=== PATIENT | female | born 1975 | race Caucasian/White ===

== ENCOUNTER 2017-07-24 13:56 | Emergency (ER) | payer OTHER ==
[2017-07-24 14:44] VITALS: BP 120/49
--- NOTE | 2017-07-24 14:50 | EDM.PDOC ---
ED HPI GENERAL MEDICAL PROBLEM - General Chief Complaint: Gastrointestinal Problem Stated Complaint: CHEST PAIN Time Seen by Provider: 07/24/17 14:25 Source of Information: Reports: Patient, RN, RN Notes Reviewed History Limitations: Reports: No Limitations - History of Present Illness INITIAL COMMENTS - FREE TEXT/NARRATIVE: Pt presents to the ER with c/o sternal/epigastric pain that she rates a 6/10. She states the pain is sharp "like a pencil poking through the stomach to the back. She states the pain has been ongoing for weeks to months, but today seems especially worse. Recently she has been feeling palpitations, and currently she is wearing a Holter Monitor ordered by Chano Yeung NP. She states 2 weeks ago she was seen in the ER in with the same thing, and they prescribed Bentyl for IBS. She denies sob, fever, or chills. She states she is always nauseated but never vomits. She has an appointment set up with Monroe Angeles NP with GI in on Aug.18. Onset: Today, Gradual Location: Reports: Chest Quality: Reports: Sharp Severity: Moderate Improves with: Reports: None Worsens with: Reports: None Associated Symptoms: Reports: No Other Symptoms Epigastric Pain Score (Numeric/FACES): 6 - Related Data Allergies Allergy/AdvReac Type Severity Reaction Status Date / Time acetaminophen [From Percocet] Allergy Hives Verified 01/15/16 13:02 bupropion Allergy Other Verified 01/15/16 13:02 moxifloxacin Allergy Cannot Verified 01/15/16 13:02 Remember oxycodone HCl [From Percocet] Allergy Hives Verified 01/15/16 13:02 Sulfa (Sulfonamide Allergy Rash Verified 01/15/16 13:02 Antibiotics) venlafaxine Allergy Other Verified 01/15/16 13:02 Home Meds: Home Meds ALPRAZolam [Alprazolam] 0.25 mg PO BID PRN 01/10/16 [History] Cetirizine [ZyrTEC] 10 mg PO DAILY PRN 01/10/16 [History] DULoxetine [Cymbalta] 30 mg PO DAILY 01/10/16 [History] Dicyclomine [Bentyl] 10 mg PO DAILY 01/10/16 [History] Fluconazole [Fluconazole] 100 mg PO ASDIRECTED 01/10/16 [History] Fluticasone Propionate [Flonase] 1 squirt NASBOTH DAILY PRN 01/10/16 [History] Hydroxychloroquine Sulfate [Plaquenil] 400 mg PO DAILY 01/10/16 [History] Minocycline [Minocin] 100 mg PO DAILY 01/10/16 [History] Naproxen [Naprosyn] 500 mg PO BID PRN 01/10/16 [History] Ondansetron [Zofran ODT] 4 mg PO BID PRN 01/10/16 [History] Propranolol [Inderal LA] 60 mg PO BEDTIME 01/10/16 [History] predniSONE 5 mg PO DAILY PRN 01/10/16 [History] Omeprazole [Prilosec] 20 mg PO ACDINNER 01/15/16 [History] Mirtazapine [Mirtazapine] 1 tab PO BEDTIME 07/24/17 [History] Past Medical History HEENT History: Reports: None Cardiovascular History: Reports: None Respiratory History: Reports: Asthma Gastrointestinal History: Reports: Chronic Constipation, GERD Genitourinary History: Reports: None [employer] History: Reports: Musculoskeletal History: Reports: Arthritis, Fibromyalgia, Other (See Below) Other Musculoskeletal History: INFLAMMATORY ARTHRITIS; HIP PAIN Neurological History: Reports: Headaches, Chronic, Other (See Below) Other Neuro History: INSOMNIA Psychiatric History: Reports: Anxiety Endocrine/Metabolic History: Reports: None Hematologic History: Reports: None Immunologic History: Reports: None Oncologic (Cancer) History: Reports: None Dermatologic History: Reports: None - Infectious Disease History Infectious Disease History: Reports: None - Past Surgical History Female Surgical History: Reports: Tubal Ligation, Other (See Below) Social & Family History - Tobacco Use Smoking Status *Q: Current Every Day Smoker Years of Tobacco use: 20 Packs/Tins Daily: 1 - Recreational Drug Use Recreational Drug Use: No ED ROS GENERAL - Review of Systems Review Of Systems: ROS reveals no pertinent complaints other than HPI. ED EXAM, GENERAL - Physical Exam Exam: See Below Exam Limited By: No Limitations General Appearance: Alert, WD/WN, No Apparent Distress Eye Exam: Bilateral Eye: Normal Inspection Ears: Normal External Exam, Hearing Grossly Normal Nose: Normal Inspection Throat/Mouth: Normal Inspection, Normal Voice, No Airway Compromise Head: Atraumatic, Normocephalic Neck: Normal Inspection, Supple, Non-Tender, Full Range of Motion Respiratory/Chest: No Respiratory Distress, Lungs Clear, Normal Breath Sounds, No Accessory Muscle Use. No: Chest Non-Tender Cardiovascular: Normal Peripheral Pulses, Regular Rate, Rhythm, No Edema, No Gallop, No JVD, No Murmur, No Rub Peripheral Pulses: 2+: Radial (L), Radial (R) GI/Abdominal: Normal Bowel Sounds, Soft, Non-Tender, No Organomegaly, No Distention, No Abnormal Bruit, No Mass (Female) Exam: Deferred Rectal (Female) Exam: Deferred Back Exam: Normal Inspection, Full Range of Motion Extremities: Normal Inspection, Normal Range of Motion, Non-Tender, No Pedal Edema, Normal Capillary Refill Neurological: Alert, Oriented, Normal Cognition, Normal Gait, No Motor/Sensory Deficits Psychiatric: Normal Affect, Normal Mood Skin Exam: Warm, Dry, Intact, Normal Color, No Rash Lymphatic: No Adenopathy EKG INTERPRETATION EKG Date: 07/24/17 Time: 14:38 Rhythm: NSR Rate (Beats/Min): 79 [place]: Normal P-Wave: Present QRS: Normal ST-T: Normal QT: Normal Comparison: NA - No Prior EKG Course - Vital Signs Last Recorded V/S: Last Vital Signs Temp 98.5 F 07/24/17 13:58 Pulse 81 07/24/17 13:58 Resp 16 07/24/17 13:58 BP 120/49 L 07/24/17 13:58 Pulse Ox 100 07/24/17 13:58 - Orders/Labs/Meds Orders: Active Orders 24 hr Category Date Time Status EKG Documentation Completion [RC] STAT Care 07/24/17 14:40 Active AMYLASE [CHEM] Stat Lab 07/24/17 14:52 Received LIPASE [CHEM] Stat Lab 07/24/17 14:52 Received Labs: Laboratory Tests 07/24/17 07/24/17 07/24/17 Range/Units 14:52 14:52 14:57 WBC 12.3 H (5.0-10.0) 10^3/uL RBC 4.23 (4.2-5.4) 10^6/uL Hgb 13.4 (12.0-16.0) g/dL Hct 39.3 (37.0-47.0) % MCV 92.9 (80-100) fL MCH 31.7 (27.0-34.0) pg MCHC 34.1 (33.0-35.0) g/dL Plt Count 296 (150-450) 10^3/uL Neut % (Auto) 70.1 (42.2-75.2) % Lymph % (Auto) 15.2 L (20.5-50.1) % [place] % (Auto) 12.1 H (2-8) % Eos % (Auto) 2.3 (1.0-3.0) % Baso % (Auto) 0.3 (0.0-1.0) % Sodium 138 (135-145) mmol/L Potassium 3.3 L (3.6-5.0) mmol/L Chloride 102 (101-111) mmol/L Carbon Dioxide 26.0 (21.0-31.0) mmol/L Anion Gap 13.3 BUN 13 (7-18) mg/dL Creatinine 0.7 (0.6-1.3) mg/dL Est Cr Clr Drug Dosing 88.56 mL/min Estimated GFR (MDRD) > 60 BUN/Creatinine Ratio 18.57 Glucose 78 (74-105) mg/dL Calcium 8.9 (8.4-10.2) mg/dl Total Bilirubin 0.6 (0.2-1.0) mg/dL AST 22 (10-42) IU/L ALT 20 (10-60) IU/L Alkaline Phosphatase 55 (42-121) IU/L Troponin I < 0.02 (0.00-0.02) ng/ml Total Protein 6.9 (6.7-8.2) g/dl Albumin 3.9 (3.2-5.5) g/dl Globulin 3.0 Albumin/Globulin Ratio 1.30 Urine Color (YELLOW) Urine Appearance (CLEAR) Urine pH (5.0-9.0) Ur Specific [place] (1.005-1.030) Urine Protein (NEGATIVE) Urine Glucose (UA) (NEGATIVE) Urine Ketones (NEGATIVE) Urine Occult Blood (NEGATIVE) Urine Nitrite (NEGATIVE) Urine Bilirubin (NEGATIVE) Urine Urobilinogen (0.2-1.0) mg/dL Ur Leukocyte Esterase (NEGATIVE) Urine RBC /HPF Urine WBC (0-5/HPF) /HPF Ur Epithelial Cells /HPF Urine Bacteria (0-FEW/HPF) /HPF Urine Mucus /LPF Urine HCG, Qual Negative 07/24/17 Range/Units 14:57 WBC (5.0-10.0) 10^3/uL RBC (4.2-5.4) 10^6/uL Hgb (12.0-16.0) g/dL Hct (37.0-47.0) % MCV (80-100) fL MCH (27.0-34.0) pg MCHC (33.0-35.0) g/dL Plt Count (150-450) 10^3/uL Neut % (Auto) (42.2-75.2) % Lymph % (Auto) (20.5-50.1) % [place] % (Auto) (2-8) % Eos % (Auto) (1.0-3.0) % Baso % (Auto) (0.0-1.0) % Sodium (135-145) mmol/L Potassium (3.6-5.0) mmol/L Chloride (101-111) mmol/L Carbon Dioxide (21.0-31.0) mmol/L Anion Gap BUN (7-18) mg/dL Creatinine (0.6-1.3) mg/dL Est Cr Clr Drug Dosing mL/min Estimated GFR (MDRD) BUN/Creatinine Ratio Glucose (74-105) mg/dL Calcium (8.4-10.2) mg/dl Total Bilirubin (0.2-1.0) mg/dL AST (10-42) IU/L ALT (10-60) IU/L Alkaline Phosphatase (42-121) IU/L Troponin I (0.00-0.02) ng/ml Total Protein (6.7-8.2) g/dl Albumin (3.2-5.5) g/dl Globulin Albumin/Globulin Ratio Urine Color Yellow (YELLOW) Urine Appearance Slightly cloudy (CLEAR) Urine pH 6.5 (5.0-9.0) Ur Specific [place] >= 1.030 (1.005-1.030) Urine Protein Trace H (NEGATIVE) Urine Glucose (UA) Negative (NEGATIVE) Urine Ketones Negative (NEGATIVE) Urine Occult Blood Negative (NEGATIVE) Urine Nitrite Negative (NEGATIVE) Urine Bilirubin Negative (NEGATIVE) Urine Urobilinogen 0.2 (0.2-1.0) mg/dL Ur Leukocyte Esterase Negative (NEGATIVE) Urine RBC 0-5 /HPF Urine WBC 0-5 (0-5/HPF) /HPF Ur Epithelial Cells Rare /HPF Urine Bacteria Rare (0-FEW/HPF) /HPF Urine Mucus Few H /LPF Urine HCG, Qual Meds: Medications Discontinued Medications Generic Name Dose Route Start Last Admin Trade Name Romi PRN Reason Stop Dose Admin Al Hydroxide/Mg Hydroxide 30 ml 07/24/17 15:33 07/24/17 15:39 Gi Cocktail PO 07/24/17 15:34 30 ml ONETIME ONE Administration - Radiology Interpretation Free Text/Narrative:: chest xray: See rad report Departure - Departure Time of Disposition: 15:58 Disposition: Home, Self-Care 01 Condition: Fair Clinical Impression: Epigastric abdominal pain Acid reflux Qualifiers: Esophagitis presence: esophagitis presence not specified Qualified Code(s): K21.9 - Gastro-esophageal reflux disease without esophagitis Instructions: Heartburn, [id number], Gastroesophageal Reflux Disease, Adult Forms: ED Department Discharge Additional Instructions: RX: Magic Mouthwash Follow up with Chano Yeung NP Follow up with your appointment with Monroe Angeles NP - My Orders Last 24 Hours: My Active Orders 07/24/17 14:40 EKG Documentation Completion [RC] STAT 07/24/17 14:52 AMYLASE [CHEM] Stat LIPASE [CHEM] Stat - Assessment/Plan Last 24 Hours: My Active Orders 07/24/17 14:40 EKG Documentation Completion [RC] STAT 07/24/17 14:52 AMYLASE [CHEM] Stat LIPASE [CHEM] Stat
--- NOTE | 2017-07-24 15:07 | CR ---
Clinical history: 42-year-old female "sharp, stabbing" substernal lower anterior chest pain who has a Holter monitor (cholecystectomy several years ago). Interpretation: PA lateral chest film demonstrate some mild shaggy accentuation perihilar lung markin gs with subtle peribronchial "cuffing" but no focal lobar pneumonia and no signs of atelectasis/colla pse. Normal cardiac silhouette without cephalization of flow, signs of alveolar edema or dependent pleural effusion. No pneumothorax, pneumomediastinum or subdiaphragmatic air. Midline tracheal airway unremarkable. Early marginal arthritic spurring dorsal spine.
[2017-07-24 15:16] LABS: CHLORIDE,CL 102 mmol/L (101-111); SODIUM,NA 138 mmol/L (135-145)
[2017-07-24] MEDS ORDERED: GI Cocktail Oral Solution 30 ML PO ONE (15:33)
--- NOTE | 2017-07-28 10:36 | EKG ---
07/24/2017 - NATAN JAIME I reviewed the EKG and agree with the machine's reading. [facility] /[id number]
== END 2017-07-24 16:34 | disposition home or self-care (01) ==
LOC: DL.ED 13:56
DX: K21.9 Gastro-esophageal reflux disease without esophagitis (principal); F17.210 Nicotine dependence, cigarettes, uncomplicated; J45.909 Unspecified asthma, uncomplicated; F41.9 Anxiety disorder, unspecified; Z79.899 Other long term (current) drug therapy; Z88.2 Allergy status to sulfonamides; Z88.6 Allergy status to analgesic agent; Z88.1 Allergy status to other antibiotic agents; Z88.8 Allergy status to other drugs, medicaments and biological substances
CPT/HCPCS: 36415; 71020; 80053; 81001; 81025; 82150; 83690; 84484; 85025; 93005; 99284; A9270

== ENCOUNTER 2019-08-20 22:43 | Emergency (ER) | payer OTHER ==
[2019-08-20 23:44] VITALS: BP 126/59; PULSE 97
[2019-08-21] MEDS ORDERED: Ciprofloxacin 500 MG Tab PO ONE
--- NOTE | 2019-08-21 00:06 | EDM.PDOC ---
ED HPI GENERAL MEDICAL PROBLEM - General Chief Complaint: Genitourinary Problem Stated Complaint: URINARY PAIN Time Seen by Provider: 08/20/19 23:15 Source of Information: Reports: Patient History Limitations: Reports: No Limitations - History of Present Illness INITIAL COMMENTS - FREE TEXT/NARRATIVE: urinary frequency and burning since 5pm. No hx UTI. 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 Generalized Pain Score (Numeric/FACES): 7 - Related Data Allergies Allergy/AdvReac Type Severity Reaction Status Date / Time acetaminophen [From Percocet] Allergy Hives Verified 08/20/19 23:45 bupropion Allergy Other Verified 08/20/19 23:45 moxifloxacin Allergy Cannot Verified 08/20/19 23:45 Remember oxycodone HCl [From Percocet] Allergy Hives Verified 08/20/19 23:45 Sulfa (Sulfonamide Allergy Rash Verified 08/20/19 23:45 Antibiotics) venlafaxine Allergy Other Verified 08/20/19 23:45 Home Meds: Home Meds ALPRAZolam [Alprazolam] 0.25 mg PO BID PRN 01/10/16 [History] Cetirizine [ZyrTEC] 10 mg PO DAILY PRN 01/10/16 [History] DULoxetine [Cymbalta] 30 mg PO DAILY 01/10/16 [History] Dicyclomine [Bentyl] 10 mg PO DAILY 01/10/16 [History] Fluconazole 100 mg PO ASDIRECTED 01/10/16 [History] Fluticasone Propionate [Flonase] 1 squirt NASBOTH DAILY PRN 01/10/16 [History] Hydroxychloroquine Sulfate [Plaquenil] 400 mg PO DAILY 01/10/16 [History] Minocycline [Minocin] 100 mg PO DAILY 01/10/16 [History] Naproxen [Naprosyn] 500 mg PO BID PRN 01/10/16 [History] Ondansetron [Zofran ODT] 4 mg PO BID PRN 01/10/16 [History] Propranolol [Inderal LA] 60 mg PO BEDTIME 01/10/16 [History] predniSONE 5 mg PO DAILY PRN 01/10/16 [History] Omeprazole [Prilosec] 20 mg PO ACDINNER 01/15/16 [History] Mirtazapine 1 tab PO BEDTIME 07/24/17 [History] Past Medical History HEENT History: Reports: None Cardiovascular History: Reports: None Other Cardiovascular History: palpatations and heart beating fast sometimes Respiratory History: Reports: Asthma Gastrointestinal History: Reports: Chronic Constipation, GERD Genitourinary History: Reports: None 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: Musculoskeletal History: Reports: Arthritis, Fibromyalgia, Other (See Below) Other Musculoskeletal History: INFLAMMATORY ARTHRITIS; HIP PAIN Neurological History: Reports: Headaches, Chronic, Other (See Below) Other Neuro History: INSOMNIA Psychiatric History: Reports: Anxiety Endocrine/Metabolic History: Reports: None Hematologic History: Reports: None Immunologic History: Reports: None Oncologic (Cancer) History: Reports: None Dermatologic History: Reports: None - Infectious Disease History Infectious Disease History: Reports: None - Past Surgical History Head Surgeries/Procedures: Reports: None Female Surgical History: Reports: Tubal Ligation, Other (See Below) Social & Family History - Family History Family Medical History: Noncontributory - Tobacco Use Smoking Status *Q: Current Every Day Smoker Years of Tobacco use: 28 Packs/Tins Daily: 0.5 - Caffeine Use Caffeine Use: Reports: Coffee - Recreational Drug Use Recreational Drug Use: No ED ROS GENERAL - Review of Systems Review Of Systems: See Below Constitutional: Reports: No Symptoms HEENT: Reports: No Symptoms Respiratory: Reports: No Symptoms Cardiovascular: Reports: No Symptoms GI/Abdominal: Reports: No Symptoms : Reports: Dysuria, Frequency, Urgency. Denies: Flank Pain Musculoskeletal: Reports: No Symptoms Skin: Reports: No Symptoms Neurological: Reports: No Symptoms ED EXAM, RENAL/ - Physical Exam Exam: See Below Exam Limited By: No Limitations General Appearance: Alert, Mild Distress Eye Exam: Bilateral Eye: EOMI Ears: Normal External Exam Nose: No: Nasal Drainage Throat/Mouth: Normal Voice Head: Atraumatic, Normocephalic Neck: Full Range of Motion Respiratory/Chest: No Respiratory Distress, Lungs Clear, Normal Breath Sounds Cardiovascular: Regular Rate, Rhythm GI/Abdominal: Normal Bowel Sounds, Soft, Non-Tender Back Exam: No: CVA Tenderness (L), CVA Tenderness (R) Neurological: Alert, Oriented, Normal Cognition Psychiatric: Normal Affect Skin Exam: Warm, Dry, Intact, Normal Color Course - Vital Signs Last Recorded V/S: Last Vital Signs Temp 97.4 F 08/20/19 23:04 Pulse 97 12/06/19 23:04 Resp 18 08/20/19 23:04 BP 126/59 L 08/20/19 23:04 Pulse Ox 99 08/20/19 23:04 - Orders/Labs/Meds Labs: Laboratory Tests 08/20/19 Range/Units 23:03 Urine Color [place] (YELLOW) Urine Appearance Cloudy (CLEAR) Urine pH 6.0 (5.0-9.0) Ur Specific [place] 1.020 (1.005-1.030) Urine Protein >=300 H (NEGATIVE) Urine Glucose (UA) 100 H (NEGATIVE) Urine Ketones Trace H (NEGATIVE) Urine Occult Blood Small H (NEGATIVE) Urine Nitrite Positive H (NEGATIVE) Urine Bilirubin Negative (NEGATIVE) Urine Urobilinogen 1.0 (0.2-1.0) mg/dL Ur Leukocyte Esterase Trace H (NEGATIVE) Urine RBC >100 H /HPF Urine WBC >100 H (0-5/HPF) /HPF Ur Epithelial Cells Occasional (NOT SEEN) /HPF Urine Bacteria Few (0-FEW/HPF) /HPF Meds: Medications Discontinued Medications Generic Name Dose Route Start Last Admin Trade Name Freq PRN Reason Stop Dose Admin Ciprofloxacin 500 mg 08/21/19 00:00 08/21/19 00:10 Ciprofloxacin Hcl PO 08/21/19 00:01 500 mg ONETIME ONE Administration Departure - Departure Time of Disposition: 00:02 Disposition: Home, Self-Care 01 Condition: Good Clinical Impression: UTI, Urinary tract infectious disease - Discharge Information *PRESCRIPTION DRUG MONITORING PROGRAM REVIEWED*: No *COPY OF PRESCRIPTION DRUG MONITORING REPORT IN PATIENT ALICE: No Instructions: Urinary Tract Infection, Adult, [id number] Forms: ED Department Discharge Additional Instructions: increase fluids pyridium 200mg every 8 hours as needed for pain /spasm with urination Cipro 500mg one twice daily for 7 days Folow up if symptom,s worsen, fever, chills vomiting, flank pain
== END 2019-08-21 00:10 | disposition home or self-care (01) ==
LOC: DL.ED 22:43
DX: N39.0 Urinary tract infection, site not specified (principal); J45.909 Unspecified asthma, uncomplicated; K21.9 Gastro-esophageal reflux disease without esophagitis; F41.9 Anxiety disorder, unspecified; Z88.6 Allergy status to analgesic agent; Z88.1 Allergy status to other antibiotic agents; Z88.5 Allergy status to narcotic agent; Z88.2 Allergy status to sulfonamides; Z88.8 Allergy status to other drugs, medicaments and biological substances; F17.210 Nicotine dependence, cigarettes, uncomplicated; Z79.51 Long term (current) use of inhaled steroids; Z79.899 Other long term (current) drug therapy
CPT/HCPCS: 81001; 99283; A9270